=== PATIENT | female | born 1970 | race Caucasian/White ===

== ENCOUNTER 2018-08-29 00:38 | Emergency (ER) | payer OTHER, SELFPAY ==
[2018-08-29 00:38] VITALS: BP 131/83; PULSE 92; RESP 14; TEMP 36.6; O2SAT 99; BMI 37.5
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
--- NOTE | 2018-08-29 01:01 | DCINST.ED_ITS ---
ED Disposition - Plan for ED Patient: Instructions: BACK SPASM, No Trauma, Back Sprain/Strain Prescriptions: cycloBENZAPRine HCl [Flexeril] 10 mg PO TID PRN #20 tab PRN Reason: Muscle Spasm Prescription Printed Naproxen [Naprosyn] 500 mg PO BID PRN #20 tab Prescription Printed Hydrocodone Bitart/Apap 5-325 [[place] 5MG-325MG] 1 tab PO Q4H PRN PRN 2 Days #10 tab PRN Reason: Pain Prescription Printed Referrals: [facility] Doctor,Out of [Primary Care Provider] - Marty Stvee III, MD [STAFF PHYSICIAN] - 3-5 Days
[2018-08-29] MEDS: Orphenadrine 60 MG/2 ML Ampul IM (01:12)
[2018-08-29] MEDS: Ketorolac 60 MG/2 ML Vial IM (01:12)
[2018-08-29] MEDS: HYDROmorphone 1 MG/ML Syringe IM (01:13)
[2018-08-29 01:46] VITALS: BP 136/74; PULSE 82; RESP 18; O2SAT 97
--- NOTE | 2018-08-29 01:47 | ED.RN ---
THIS NURSE REVIEWED D/C INSTRUCTIONS WITH PT. PT VERBALIZED UNDERSTANDING OF INSTRUCTIONS. PT REQUESTING DR BLUE FOR 08/28 AND 08/29. DR GARNER NOTIFIED. ONLY ABLE TO GIVE EXCUSE FOR 08/29/[address] GARNER. NO FURTHER QUESTIONS AT THIS TIME.
== END 2018-08-29 01:48 | disposition home or self-care (01) ==
LOC: ED 01:21
PROVIDERS: Emergency Provider Emergency Medicine
DX: S39.012A Strain of muscle, fascia and tendon of lower back, initial encounter (principal); X50.3XXA Overexertion from repetitive movements, initial encounter; Y93.89 Activity, other specified; Y92.009 Unspecified place in unspecified non-institutional (private) residence as the place of occurrence of the external cause; Z72.0 Tobacco use
CPT/HCPCS: 96372; 99282; A4216

== ENCOUNTER 2018-12-31 18:56 | Emergency (ER) | payer MEDICAID, SELFPAY ==
[2018-12-31 18:57] VITALS: BP 142/95; PULSE 77; RESP 16; TEMP 36.4; O2SAT 99; BMI 37.6
[2018-12-31] MEDS: 0.9% Normal Saline 1,000 ML 999 ML IV (20:05)
[2018-12-31] MEDS: proCHLORPERazine 10 MG/2 ML Vial IV (20:09)
[2018-12-31] MEDS: Ketorolac 30 MG/ML Syringe IV (20:09)
[2018-12-31] MEDS: DiphenhydrAMINE 50 MG/ML Syringe 25 MG IV (20:09)
--- NOTE | 2018-12-31 20:43 | ED.DCSUM_ITS ---
- ER Visit Summary Date of Service: 12/31/18 Chief Complaint: Headache History of Present Illness: The patient is a 48 F with a headache for the past 4 days. It came on gradually. It is frontal and radiates to her neck. It feels like prior migraines. She tried Tylenol, but nothing seems to help. No other associated symptoms. No trauma. No blood thinners. Physical Examination: Afebrile and vital signs unremarkable. Moves all extremities. Alert and oriented. Cranial nerves grossly intact. Skin appears normal. Test Results: None indicated Emergency Department Course and Treatment: Patient has a history of migraines. Reports similar symptoms today. No red flag or new features. Patient does not require diagnostic testing. Will be treated with fluids, Compazine, Benadryl, Toradol. On reevaluation, the patient is feeling better and will be discharged. Follow- up with primary care. Treatment Plan: As above Disposition: Discharge Impression: 1. Migraine This note was generated with [employer] dictation software. It may contain incorrect words, spelling, and punctuation that were not noted in review of the chart prior to signing ED Disposition - Plan for ED Patient: Referrals: Care Physician,No Primary [Primary Care Provider] -
--- NOTE | 2018-12-31 20:44 | ED.DEP ---
ED Disposition - Plan for ED Patient: Instructions: ED, Migraine (Classical) Referrals: Candace Orellana [NON-STAFF] -
[2018-12-31 21:18] VITALS: BP 124/71; PULSE 67; RESP 16; O2SAT 98
== END 2018-12-31 21:21 | disposition home or self-care (01) ==
LOC: ED 19:51
PROVIDERS: Emergency Provider Emergency Medicine
DX: G43.909 Migraine, unspecified, not intractable, without status migrainosus (principal); F17.200 Nicotine dependence, unspecified, uncomplicated
CPT/HCPCS: 96361; 96374; 96375; 99284; J7030; A4216